=== PATIENT | female | born 1985 | race American Indian/Alaskan Native ===

== ENCOUNTER 2016-05-25 15:47 | Emergency (ER) | payer MEDICAID ==
[2016-05-25 16:30] VITALS: BP 135/82
--- NOTE | 2016-05-25 21:40 | Emergency Department Report ---
ED Female HPI - General Chief complaint: Urogenital-Female Stated complaint: UTI Time Seen by Provider: 05/25/16 21:29 Source: patient Mode of arrival: Ambulatory Limitations: No Limitations - History of Present Illness Initial comments: She was a 31-year-old female who presents to ED complaining of bloating urine 1 week as well as vaginal discharge intermittently 2 months. Patient states vaginal discharge as malodourous, grayish white, irritative. Patient admitted vaginal aching. Patient denies contraceptive use. Patient states last menstrual period was sometime last week but does not recall the date. Patient states her urine has foul odor 2 days Patient denies fever/chills/nausea/vomiting/abdominal pain or pelvic pain/ vaginal bleeding. - Related Data Previous Rx's Medication Instructions Recorded Last Taken Type Nitrofurantoin [place]/M-Cryst 100 mg PO Q12HR 10 Days 02/25/15 Unknown Rx [Macrobid CAP] Ciprofloxacin HCl [Ciprofloxacin 500 mg PO Q12HR #14 tab 05/25/16 Unknown Rx TAB] metroNIDAZOLE [Flagyl TAB] 500 mg PO Q12HR 7 Days 05/25/16 Unknown Rx Allergies Allergy/AdvReac Type Severity Reaction Status Date / Time No Known Allergies Allergy Verified 05/25/16 16:27 ED Review of Systems ROS: Stated complaint: UTI Other details as noted in HPI Constitutional: denies: chills, fever Eyes: denies: eye pain, eye discharge, vision change ENT: denies: ear pain, throat pain Respiratory: denies: cough, shortness of breath, wheezing Cardiovascular: denies: chest pain, palpitations Endocrine: no symptoms reported Gastrointestinal: denies: abdominal pain, nausea, vomiting, diarrhea, constipation Genitourinary: discharge. denies: urgency, dysuria, frequency Musculoskeletal: denies: back pain, joint swelling, arthralgia Skin: denies: rash, lesions Neurological: denies: headache, weakness, paresthesias Psychiatric: denies: anxiety, depression Hematological/Lymphatic: denies: easy bleeding, easy bruising ED Past Medical Hx - Past Medical History Additional medical history: Herpes, Vaginal delivery x 1 - Social History Smoking Status: Never Smoker Substance Use Type: Alcohol, Prescribed, Other - Medications Home Medications: Home Medications Medication Instructions Recorded Confirmed Last Taken Type Nitrofurantoin [place]/M-Cryst 100 mg PO Q12HR 10 Days 02/25/15 Unknown Rx [Macrobid CAP] Ciprofloxacin HCl [Ciprofloxacin 500 mg PO Q12HR #14 tab 05/25/16 Unknown Rx TAB] metroNIDAZOLE [Flagyl TAB] 500 mg PO Q12HR 7 Days 05/25/16 Unknown Rx ED Physical Exam - General Limitations: No Limitations General appearance: alert, in no apparent distress - Head Head exam: Present: atraumatic, normocephalic - Eye Eye exam: Present: normal appearance, PERRL, EOMI Pupils: Present: normal accommodation - ENT ENT exam: Present: mucous membranes moist - Neck Neck exam: Present: normal inspection, full ROM. Absent: tenderness, meningismus, lymphadenopathy - Respiratory Respiratory exam: Present: normal lung sounds bilaterally. Absent: respiratory distress, wheezes, rales, rhonchi - Cardiovascular Cardiovascular Exam: Present: regular rate, normal rhythm. Absent: systolic murmur, diastolic murmur, rubs, gallop - GI/Abdominal GI/Abdominal exam: Present: soft, normal bowel sounds. Absent: distended, tenderness, guarding, rebound - Rectal Rectal exam: Present: normal inspection. Absent: hemorrhoids, mass - External exam: Present: normal external exam. Absent: erythema, swelling, lesions, lacerations, ecchymosis, bleeding Speculum exam: Present: vaginal discharge (moderate clear), cervical discharge ( clear). Absent: vaginal bleeding, foreign body, tissue, laceration Bi-manual exam: Present: normal bi-manual exam. Absent: cervical motion tendernes, adnexal tenderness, adnexal mass, uterine enlargement, uterine tenderness - Extremities Exam Extremities exam: Present: normal inspection, full ROM, normal capillary refill - Back Exam Back exam: Present: normal inspection, full ROM. Absent: tenderness, CVA tenderness (R), CVA tenderness (L) - Neurological Exam Neurological exam: Present: alert, oriented X3, CN II-XII intact, normal gait - Psychiatric Psychiatric exam: Present: normal affect, normal mood - Skin Skin exam: Present: warm, dry, intact, normal color. Absent: rash ED Course Vital Signs 05/25/16 16:27 Temperature 98.3 F Pulse Rate 82 Respiratory 16 Rate Blood Pressure 135/82 O2 Sat by Pulse 100 Oximetry ED Medical Decision Making - Medical Decision Making Patient is a 31-year-old female who presents with urinary tract infection and bacterial vaginosis. Alert and oriented 3 in no distress ED course: UA shows moderately high white blood cells with a red blood cells and positive glucose. Wet prep culture positive for greater than 20% clue cells is just of bacterial vaginosis. Discussed results and findings with patient. Discussed antibiotic treatment with patient. Discussed to follow up with primary care physician or women's health clinic has referred. Patient states she will comply and follow-up. Critical care attestation.: If time is entered above; I have spent that time in minutes in the direct care of this critically ill patient, excluding procedure time. ED Disposition Clinical Impression: UTI (urinary tract infection), Bacterial vaginosis Disposition: DISCHARGED TO HOME OR SELFCARE Is pt being admited?: No Does the pt Need Aspirin: No Condition: Stable Instructions: Urinary Tract Infection in Women (ED), Dysuria (ED), Bacterial Vaginosis (ED) Prescriptions: Ciprofloxacin HCl [Ciprofloxacin TAB] 500 mg PO Q12HR #14 tab metroNIDAZOLE [Flagyl TAB] 500 mg PO Q12HR 7 Days Referrals: PRIMARY CARE, [Primary Care Provider] - 3-5 Days [facility] [Outside] - 3-5 Days [facility] [Outside] - 3-5 Days [facility] [Outside] - 3-5 Days Forms: Work/School Release Form(ED), STI Treatment and Prevention Time of Disposition: 23:23
[2016-05-25 22:24] LABS: Bilirubin,Urine NEG (Negative); Blood,Urine SM (Negative); Ketones,Urine NEG (Negative); Leukocyte Esterase,Urine MOD (Negative); Mucus,Urine 2+ /HPF; Nitrite,Urine NEG (Negative); Protein,Urine <15 mg/dL mg/dL (Negative); Urobilinogen,Urine < 2.0 mg/dL (<2.0)
== END 2016-05-26 02:03 | disposition home or self-care (01) ==
LOC: ED 15:47
DX: N39.0 Urinary tract infection, site not specified (principal); N76.0 Acute vaginitis
CPT/HCPCS: 81001; 81025; 87210; 99283

== ENCOUNTER 2017-11-03 08:46 | Outpatient (CLI) | payer MEDICAID ==
--- NOTE | 2017-11-03 15:18 | Mammography Report ---
Bilateral mammogram: Baseline examination. The patient presents with a two-month history of periodic pain in the upper portion of the left breast. No palpable. Routine views demonstrate heterogeneously dense fibroglandular pattern. There is symmetric distribution. No focal mass, architectural distortion, and no calcification identified. CAD used. Impression: No abnormality identified. Recommendation: Clinical followup. Any additional evaluation at this time should be based on clinical concern. Otherwise, age-appropriate mammogram followup. BI-RADS CATEGORY: 1 = Negative ACR BI-RADS MAMMOGRAPHIC CODES: 0 = Needs additional imaging evaluation; 1 = Negative; 2 = Benign; 3 = Probably benign; 4 = Suspicious; 5 = Malignant; 6 = Known biopsy-proven malignancy COMMENT: 1. Dense breast tissue, i.e., adenosis, fibrocystic changes, etc., may obscure an underlying neoplasm. 2. Approximately 10% of cancers are not detected with mammography. 3. A negative mammography report should not delay biopsy if a clinically suspicious mass is present.
== END 2017-11-03 08:47 | disposition home or self-care (01) ==
LOC: MAMMO 08:46
PROVIDERS: ATTEND Advanced Practice Midwife
DX: N60.02 Solitary cyst of left breast (principal)
CPT/HCPCS: 77066

== ENCOUNTER 2019-02-04 11:27 | Emergency (ER) | payer MEDICAID ==
[2019-02-04 11:35] VITALS: BP 128/74
--- NOTE | 2019-02-04 11:35 | Emergency Department Report ---
Blank Doc - Documentation Documentation: 33-year-old female that presents with urinary symptoms and vaginal discharge. This initial assessment/diagnostic orders/clinical plan/treatment(s) is/are subject to change based on patient's health status, clinical progression and re- assessment by fellow clinical providers in the ED. Further treatment and workup at subsequent clinical providers discretion. Patient/guardians urged not to elope from the ED as their condition may be serious if not clinically assessed and managed. Initial orders include: 1- Patient sent to [facility] for further evaluation and treatment 2- UA
[2019-02-04 12:28] LABS: Bilirubin,Urine NEG (Negative); Blood,Urine NEG (Negative); Color,Urine Yellow (Yellow); Mucus,Urine FEW /HPF; Protein,Urine <15 mg/dL mg/dL (Negative); Urobilinogen,Urine < 2.0 mg/dL (<2.0); WBC,Urine < 1.0 /HPF (0.0-6.0)
[2019-02-04 12:45] LABS: HCG Qualitative,Urine Negative (Negative)
--- NOTE | 2019-02-04 12:53 | Emergency Department Report ---
ED Female HPI - General Chief complaint: Pain General Stated complaint: UTI/PAIN Time Seen by Provider: 02/04/19 11:34 Source: patient Mode of arrival: Ambulatory Limitations: No Limitations - History of Present Illness Initial comments: Patient is a 33-year-old female presents to emergency room with complaints of dysuria that began 2 days ago. has associated urinary frequency, urinary urgency, white vaginal discharge. She denies any vaginal itching or vaginal lesions. She denies any fever, abdominal pain, nausea, vomiting. Sensation is sexually active and did not use protection and has a new partner. She has a past medical history of herpes which she states she is on suppressive therapy for. She denies any allergies to medications. States her last mental cycle was 3 weeks ago. - Related Data Previous Rx's Medication Instructions Recorded Last Taken Type Nitrofurantoin [place]/M-Cryst 100 mg PO Q12HR 10 Days capsule 02/25/15 Unknown Rx [Macrobid CAP] Ciprofloxacin HCl [Ciprofloxacin 500 mg PO Q12HR #14 tab 05/25/16 Unknown Rx TAB] Cyproheptadine [Periactin] 4 mg PO TID #40 tablet 05/25/16 Unknown Rx metroNIDAZOLE [Flagyl TAB] 500 mg PO Q12HR 7 Days tab 05/25/16 Unknown Rx Fluconazole [Diflucan TAB] 200 mg PO QDAY 1 Days #1 tablet 02/04/19 Unknown Rx metroNIDAZOLE [Flagyl] 500 mg PO BID 7 Days #14 tab 02/04/19 Unknown Rx Allergies Allergy/AdvReac Type Severity Reaction Status Date / Time No Known Allergies Allergy Verified 05/25/16 16:27 ED Review of Systems ROS: Stated complaint: UTI/PAIN Other details as noted in HPI Comment: All other systems reviewed and negative ED Past Medical Hx - Past Medical History Additional medical history: Herpes, Vaginal delivery x 1 - Social History Smoking Status: Never Smoker Substance Use Type: None - Medications Home Medications: Home Medications Medication Instructions Recorded Confirmed Last Taken Type Nitrofurantoin [place]/M-Cryst 100 mg PO Q12HR 10 Days capsule 02/25/15 Unknown Rx [Macrobid CAP] Ciprofloxacin HCl [Ciprofloxacin 500 mg PO Q12HR #14 tab 05/25/16 Unknown Rx TAB] Cyproheptadine [Periactin] 4 mg PO TID #40 tablet 05/25/16 Unknown Rx metroNIDAZOLE [Flagyl TAB] 500 mg PO Q12HR 7 Days tab 05/25/16 Unknown Rx Fluconazole [Diflucan TAB] 200 mg PO QDAY 1 Days #1 tablet 02/04/19 Unknown Rx metroNIDAZOLE [Flagyl] 500 mg PO BID 7 Days #14 tab 02/04/19 Unknown Rx ED Physical Exam - General Limitations: No Limitations General appearance: alert, in no apparent distress - Head Head exam: Present: atraumatic, normocephalic - Eye Eye exam: Present: normal appearance - ENT ENT exam: Present: mucous membranes moist - Respiratory Respiratory exam: Present: normal lung sounds bilaterally. Absent: respiratory distress, wheezes, rales, rhonchi, stridor, chest wall tenderness, accessory muscle use, decreased breath sounds, prolonged expiratory - Cardiovascular Cardiovascular Exam: Present: regular rate, normal rhythm, normal heart sounds. Absent: systolic murmur, diastolic murmur, rubs, gallop - GI/Abdominal GI/Abdominal exam: Present: soft, normal bowel sounds. Absent: distended, tenderness, guarding, rebound, rigid - External exam: Present: normal external exam. Absent: erythema, swelling, lesions, lacerations, ecchymosis, bleeding Speculum exam: Present: vaginal discharge (copious amounts of white discharge), cervical discharge (copious amounts of white discharge), other (magazine hand: LOGAN miles). Absent: vaginal bleeding, foreign body, tissue Bi-manual exam: Present: normal bi-manual exam. Absent: cervical motion tendernes, adnexal tenderness, adnexal mass - Back Exam Back exam: Absent: CVA tenderness (R), CVA tenderness (L) - Neurological Exam Neurological exam: Present: alert, oriented X3 - Psychiatric Psychiatric exam: Present: normal affect, normal mood - Skin Skin exam: Present: warm, dry, intact ED Course Vital Signs 02/04/19 11:33 Temperature 97.8 F Pulse Rate 94 H Respiratory 16 Rate Blood Pressure 128/74 [Left] O2 Sat by Pulse 97 Oximetry ED Medical Decision Making - Lab Data Lab Results 02/04/19 Range/Units 11:44 Urine Color Yellow (Yellow) Urine Turbidity Slightly-cloudy (Clear) Urine pH 6.0 (5.0-7.0) Ur Specific [place] 1.018 (1.003-1.030) Urine Protein <15 mg/dl (Negative) mg/dL Urine Glucose (UA) Neg (Negative) mg/dL Urine Ketones Neg (Negative) mg/dL Urine Blood Neg (Negative) Urine Nitrite Neg (Negative) Urine Bilirubin Neg (Negative) Urine Urobilinogen < 2.0 (<2.0) mg/dL Ur Leukocyte Esterase Neg (Negative) Urine WBC (Auto) < 1.0 (0.0-6.0) /HPF Urine RBC (Auto) 2.0 (0.0-6.0) /HPF U Epithel Cells (Auto) 8.0 (0-13.0) /HPF Urine Mucus Few /HPF Urine HCG, Qual Negative (Negative) - Medical Decision Making Patient is a 33-year-old female presents to emergency room with complaints of dysuria that began 2 days ago. has associated urinary frequency, urinary urgency, white vaginal discharge. She denies any vaginal itching or vaginal lesions. She denies any fever, abdominal pain, nausea, vomiting. Sensation is sexually active and did not use protection and has a new partner. She has a past medical history of herpes which she states she is on suppressive therapy for. She denies any allergies to medications. States her last mental cycle was 3 weeks ago. Vitals are normal. no abd tenderness on exam. no CMT, adnexal tenderness, or adnexal masses, no signs of PID. UA without evidence of UTI. Wet prep shows evidence of bacterial vaginosis and yeast. G/C sent. Patient treated prophylactically for G/C with azithromycin and ceftriaxone. Patient given prescription for fluconazole and Flagyl. Advised patient to Please take medication as prescribed. Do not drink alcohol while taking medication. check back with medical records in one week for results of your tests. Abstain from sexual intercourse for 10 days. please have partner tested and treated as well. If concern for any other STDs please be seen by a [employer], health Department, primary care doctor. Return to the emergency room for any new or worsening symptoms. - Differential Diagnosis UTI, STD, bacterial vaginosis, yeast, vaginitis, PID Critical care attestation.: If time is entered above; I have spent that time in minutes in the direct care of this critically ill patient, excluding procedure time. ED Disposition Clinical Impression: Dysuria, Vaginal discharge, Vaginal yeast infection, Bacterial vaginosis Disposition: TO HOME OR SELFCARE Is pt being admited?: No Does the pt Need Aspirin: No Condition: Stable Instructions: Bacterial Vaginosis (ED), Sexually Transmitted Diseases (ED), Safe Sex (ED), Vulvovaginal Candidiasis (ED) Additional Instructions: Please take medication as prescribed. Do not drink alcohol while taking medication. check back with medical records in one week for results of your tests. Abstain from sexual intercourse for 10 days. please have partner tested and treated as well. If concern for any other STDs please be seen by a [employer], health Department, primary care doctor. Return to the emergency room for any new or worsening symptoms. Prescriptions: Fluconazole [Diflucan TAB] 200 mg PO QDAY 1 Days #1 tablet metroNIDAZOLE [Flagyl] 500 mg PO BID 7 Days #14 tab Referrals: [facility] [Provider Group] - 2-3 Days [facility] [Provider Group] - 2-3 Days [facility] [Outside] - 2-3 Days Forms: STI Treatment and Prevention Time of Disposition: 14:00 Print Language: RUSSIAN
[2019-02-04] MEDS ORDERED: ROCEPHIN IM ONE (13:58)
[2019-02-04] MEDS ORDERED: ZITHROMAX PO ONE (13:58)
[2019-02-04] MEDS ORDERED: XYLOCAINE 1% MPF 5 mL INFILTRATI ONE (13:58)
== END 2019-02-04 14:23 | disposition home or self-care (01) ==
LOC: ED 11:27
DX: N76.0 Acute vaginitis (principal); B37.3 Candidiasis of vulva and vagina; Z79.899 Other long term (current) drug therapy
CPT/HCPCS: 81001; 81025; 87210; 87591; 96372; 99284; J0696

== ENCOUNTER 2019-04-26 14:42 | Emergency (ER) | payer MEDICAID ==
--- NOTE | 2019-04-26 15:36 | Emergency Department Report ---
Blank Doc - Documentation Documentation: 34-year-old female that presents with vaginal bleeding and pelvic cramping. D enies today. LMP 03/24/2019. This initial assessment/diagnostic orders/clinical plan/treatment(s) is/are subject to change based on patient's health status, clinical progression and re-assessment by fellow clinical providers in the ED. Further treatment and workup at subsequent clinical providers discretion. Patient/guardians urged not to elope from the ED as their condition may be serious if not clinically assessed and managed. Initial orders include: 1- Patient sent to [facility] for further evaluation and treatment 2- UA 3- labs
[2019-04-26 16:42] LABS: HCG Qualitative,Urine Positive (Negative)
[2019-04-26 16:46] LABS: Bacteria,Urine 4+ /HPF (Negative); Bilirubin,Urine NEG (Negative); Blood,Urine NEG (Negative); Color,Urine Yellow (Yellow); Mucus,Urine FEW /HPF; Protein,Urine <15 mg/dL mg/dL (Negative); Urobilinogen,Urine < 2.0 mg/dL (<2.0)
[2019-04-26 18:15] LABS: Hematocrit 37.1 % (30.3-42.9); Hemoglobin 12.1 gm/dl (10.1-14.3); Mean Corpuscular HGB Conc 33 % (30-34); Mean Corpuscular Volume 89 fl (79-97); Platelet Count 309 K/mm3 (140-440); Red Blood Count 4.15 M/mm3 (3.65-5.03); Red Cell Distribution Width 15.3 % (13.2-15.2)
[2019-04-26 18:57] LABS: Basophils % (Manual) 0 % (0.0-1.8); Total Cells Counted 100
[2019-04-26 18:58] LABS: Anisocytosis Few
[2019-04-26 18:59] LABS: Large Platelets Few; Macrocytosis Few; Platelet Estimate Cons
--- NOTE | 2019-04-26 19:27 | Emergency Department Report ---
ED Female HPI - General Chief complaint: Vaginal Bleeding Stated complaint: BLEEDING/PAIN Time Seen by Provider: 04/26/19 15:34 Source: patient Mode of arrival: Ambulatory Limitations: No Limitations - History of Present Illness Initial comments: Ms. Hernandez is a 34-year-old female G4, P1, A3 that presents with vaginal bleeding and pelvic cramping. Denies today. LMP 03/24/2019. , there is no fever no chills no n/v , no back pain , pt denies vaginal discharge , no concern for STI. There is no history or ovarian cyst or fibroids. pt denies unprotected sex. MD Complaint: vaginal bleeding Onset/Timin -: Gradual Radiation: non-radiating Severity: moderate Severity scale (0 -10): 4 Quality: cramping Consistency: constant Improves with: none Worsens with: movement Are you Now?: No Last Menstrual Period: 03/19/19 EDC: 12/24/19 Associated Symptoms: abdominal pain. denies: vaginal discharge, vaginal bleeding, nausea/vomiting, fever/chills, dysuria, hematuria - Related Data Sexually active: Yes : 4 Para: 1 A: 3 Previous Rx's Medication Instructions Recorded Last Taken Type Nitrofurantoin [place]/M-Cryst 100 mg PO Q12HR 10 Days capsule 02/25/15 Unknown Rx [Macrobid CAP] Ciprofloxacin HCl [Ciprofloxacin 500 mg PO Q12HR #14 tab 05/25/16 Unknown Rx TAB] Cyproheptadine [Periactin] 4 mg PO TID #40 tablet 05/25/16 Unknown Rx metroNIDAZOLE [Flagyl TAB] 500 mg PO Q12HR 7 Days tab 05/25/16 Unknown Rx Fluconazole [Diflucan TAB] 200 mg PO QDAY 1 Days #1 tablet 02/04/19 Unknown Rx metroNIDAZOLE [Flagyl] 500 mg PO BID 7 Days #14 tab 02/04/19 Unknown Rx Acetaminophen [Acetaminophen TAB] 650 mg PO Q6HR PRN #30 tablet 04/27/19 Unknown Rx Ondansetron [Zofran ODT TAB] 4 mg PO Q12HR PRN #12 tab.rapdis 04/27/19 Unknown Rx cephALEXin [Keflex] 500 mg PO Q12HR 7 Days #14 cap 04/27/19 Unknown Rx Allergies Allergy/AdvReac Type Severity Reaction Status Date / Time No Known Allergies Allergy Verified 05/25/16 16:27 ED Review of Systems ROS: Stated complaint: BLEEDING/PAIN Other details as noted in HPI Constitutional: denies: chills, fever Eyes: denies: eye pain, eye discharge, vision change ENT: denies: ear pain, throat pain Respiratory: denies: cough, shortness of breath, wheezing Cardiovascular: denies: chest pain, palpitations Endocrine: no symptoms reported Gastrointestinal: abdominal pain. denies: nausea, vomiting, diarrhea Genitourinary: denies: urgency, dysuria, frequency, hematuria, discharge Musculoskeletal: denies: back pain, joint swelling, arthralgia Skin: denies: rash, lesions Neurological: denies: headache, weakness, paresthesias Psychiatric: denies: anxiety, depression Hematological/Lymphatic: denies: easy bleeding, easy bruising ED Past Medical Hx - Past Medical History Previous Medical History?: No Additional medical history: Hx Herpes - Surgical History Past Surgical History?: No - Social History Smoking Status: Never Smoker Substance Use Type: None - Medications Home Medications: Home Medications Medication Instructions Recorded Confirmed Last Taken Type Nitrofurantoin [place]/M-Cryst 100 mg PO Q12HR 10 Days capsule 02/25/15 Unknown Rx [Macrobid CAP] Ciprofloxacin HCl [Ciprofloxacin 500 mg PO Q12HR #14 tab 05/25/16 Unknown Rx TAB] Cyproheptadine [Periactin] 4 mg PO TID #40 tablet 05/25/16 Unknown Rx metroNIDAZOLE [Flagyl TAB] 500 mg PO Q12HR 7 Days tab 05/25/16 Unknown Rx Fluconazole [Diflucan TAB] 200 mg PO QDAY 1 Days #1 tablet 02/04/19 Unknown Rx metroNIDAZOLE [Flagyl] 500 mg PO BID 7 Days #14 tab 02/04/19 Unknown Rx Acetaminophen [Acetaminophen TAB] 650 mg PO Q6HR PRN #30 tablet 04/27/19 Unknown Rx Ondansetron [Zofran ODT TAB] 4 mg PO Q12HR PRN #12 tab.rapdis 04/27/19 Unknown Rx cephALEXin [Keflex] 500 mg PO Q12HR 7 Days #14 cap 04/27/19 Unknown Rx ED Physical Exam - General Limitations: No Limitations General appearance: alert, in no apparent distress - Head Head exam: Present: atraumatic, normocephalic - Eye Eye exam: Present: normal appearance, PERRL, EOMI - ENT ENT exam: Present: mucous membranes moist - Neck Neck exam: Present: normal inspection, full ROM. Absent: tenderness, lymphadenopathy - Respiratory Respiratory exam: Present: normal lung sounds bilaterally. Absent: respiratory distress, wheezes, stridor, chest wall tenderness - Cardiovascular Cardiovascular Exam: Present: regular rate, normal rhythm, normal heart sounds. Absent: systolic murmur, diastolic murmur, rubs, gallop - GI/Abdominal GI/Abdominal exam: Present: soft, normal bowel sounds. Absent: distended, tenderness, guarding, rebound, rigid, bruit, hernia - Rectal Rectal exam: Present: deferred - Extremities Exam Extremities exam: Present: normal inspection, full ROM, normal capillary refill. Absent: tenderness, pedal edema - Back Exam Back exam: Present: normal inspection, full ROM. Absent: tenderness, CVA tenderness (R), CVA tenderness (L), rash noted - Neurological Exam Neurological exam: Present: alert, oriented X3, CN II-XII intact, normal gait, reflexes normal. Absent: motor sensory deficit - Psychiatric Psychiatric exam: Present: normal affect, normal mood - Skin Skin exam: Present: warm, dry, intact, normal color. Absent: rash ED Course Vital Signs 04/26/19 04/26/19 04/26/19 15:37 19:55 19:56 Temperature 98.1 F 98.3 F Pulse Rate 102 H 85 Respiratory 18 16 16 Rate Blood Pressure 121/50 Blood Pressure 124/85 [Right] O2 Sat by Pulse 100 100 100 Oximetry ED Medical Decision Making - Lab Data Result diagrams: 04/26/19 17:47 - Radiology Data Radiology results: report reviewed, image reviewed Ordering Physician: RITCHIE CARPENTER NP Date of Service: 04/26/19 Procedure(s): US OB transvaginal Accession Number(s): [id number] cc: RITCHIE CARPENTER NP ULTRASOUND OBSTETRIC Indication: abd vaginal pos preg Findings: There is a single, living intrauterine . [place]-rump length = 4.6 millimeters = 6 weeks, 1 day(s). heart rate is not well identified secondary to early gestation The ovaries are normal. There is no free fluid. Impression: Early intrauterine , as above. Signer Name: Saulo Ortiz MD Signed: 04/27/2019 2:38 AM Workstation Name: [id number] Transcribed By: BC Dictated By: Saulo Ortiz MD Electronically Authenticated By: Saulo Ortiz MD Signed Date/Time: 04/27/19237 DD/ 6 TD/TT: - Medical Decision Making Pain is improved, US:Single IUP , 6 weeks and 1 days plan, follow up with OBGYN in 2-3 days , pt is currently a/o x 3 ambulatory with steady gait and nad. pt dc'd to home in stable condition at this time. Critical care attestation.: If time is entered above; I have spent that time in minutes in the direct care of this critically ill patient, excluding procedure time. ED Disposition Clinical Impression: Dysuria Qualifiers: Weeks of gestation: less than 8 weeks Qualified Code(s): Z3A.01 - Less than 8 weeks gestation of Disposition: DC-01 TO HOME OR SELFCARE Is pt being admited?: No Does the pt Need Aspirin: No Condition: Stable Instructions: (ED), Abdominal Pain in (ED), Dysuria (ED) Prescriptions: Acetaminophen [Acetaminophen TAB] 650 mg PO Q6HR PRN #30 tablet PRN Reason: Pain cephALEXin [Keflex] 500 mg PO Q12HR 7 Days #14 cap Ondansetron [Zofran ODT TAB] 4 mg PO Q12HR PRN #12 tab.rapdis PRN Reason: nausea vomiting Referrals: CHUCK DEVLIN MD [Staff Physician] - 3-5 Days Forms: Work/School Release Form(ED) Time of Disposition: 03:05
--- NOTE | 2019-04-27 02:42 | Ultrasound Report ---
ULTRASOUND OBSTETRIC Indication: abd vaginal pos preg Findings: There is a single, living intrauterine . [place]-rump length = 4.6 millimeters = 6 weeks, 1 day(s). heart rate is not well identified secondary to early gestation The ovaries are normal. There is no free fluid. Impression: Early intrauterine , as above. Signer Name: Saulo Ortiz MD Signed: 04/27/2019 2:38 AM Workstation Name: [id number]
--- NOTE | 2019-04-27 02:42 | Ultrasound Report ---
ULTRASOUND OBSTETRIC Indication: abd vaginal pos preg Findings: There is a single, living intrauterine . [place]-rump length = 4.6 millimeters = 6 weeks, 1 day(s). heart rate is not well identified secondary to early gestation The ovaries are normal. There is no free fluid. Impression: Early intrauterine , as above. Signer Name: Saulo Ortiz MD Signed: 04/27/2019 2:38 AM Workstation Name: [id number]
[2019-04-27 03:11] VITALS: BP 119/76
== END 2019-04-27 03:11 | disposition home or self-care (01) ==
LOC: ED 14:42
DX: O26.891 Other specified pregnancy related conditions, first trimester (principal); R30.0 Dysuria; Z3A.01 Less than 8 weeks gestation of pregnancy; Z79.899 Other long term (current) drug therapy
CPT/HCPCS: 36415; 76801; 76817; 81001; 81025; 84702; 85007; 85025; 86900; 86901; 87210; 87591

== ENCOUNTER 2019-09-27 10:29 | Emergency (ER) | payer MEDICAID ==
[2019-09-27 10:36] VITALS: BP 116/63
--- NOTE | 2019-09-27 10:54 | Emergency Department Report ---
Chief Complaint: Urogenital-Female Stated Complaint: BURNING ITCHING/27WKS PREG - HPI History of Present Illness: 34-year-old -[place] female presents to the emergency room complaining of vaginal itching and discharge since she woke up this morning. Patient denies any abdominal pain no abdominal crampiness no vaginal bleeding. Patient states that she is 27 weeks . Patient states that she came to the emergency room because she did not want to have to go to her [employer] in office which was in [place]. - Exam Vital Signs: Vital Signs 09/27/19 10:33 Temperature 97.5 F L Pulse Rate 79 Respiratory 18 Rate Blood Pressure 116/63 O2 Sat by Pulse 98 Oximetry Physical Exam: Patient is alert and oriented x3 no acute distress Patient is ambulatory without difficulties. MSE screening note: Focused history and physical exam performed. Due to findings the following was ordered: 34-year-old -[place] female presents to the emergency room complaining of vaginal itching and discharge since she woke up this morning. Patient denies any abdominal pain no abdominal crampiness no vaginal bleeding. Patient states that she is 27 weeks . Patient states that she came to the emergency room because she did not want to have to go to her [employer] in office which was in [place]. Discussed with patient that she needs to follow-up with her primary [employer] has anything related to her needs to be evaluated by them and not the emergency room. Patient verbalized understanding states that she will give them a call. ED Disposition for MSE Disposition: Z- MED SCREENING EXAM-LEFT Is pt being admited?: No Does the pt Need Aspirin: No Condition: Stable Additional Instructions: Follow-up with your [employer] as [facility] are responsible for any issues dealing with your and female organs. Give them a call and make appointment or telehealth appointment.
== END 2019-09-27 12:05 | disposition left against medical advice (07) ==
LOC: ED 10:29
DX: O26.893 Other specified pregnancy related conditions, third trimester (principal); N93.9 Abnormal uterine and vaginal bleeding, unspecified; L29.2 Pruritus vulvae; Z3A.27 27 weeks gestation of pregnancy; Z91.040 Latex allergy status
CPT/HCPCS: 99281